=== PATIENT | male | born 1995 | race Caucasian/White ===

== ENCOUNTER 2018-02-12 15:09 | Emergency (ER) | payer SELFPAY ==
[2018-02-12] MEDS ORDERED: Aspirin 81 mg CHEW TAB* 81 MG TAB.CHEW PO ONE (15:59)
[2018-02-12 16:28] LABS: Hematocrit 45 % (42-52); Hemoglobin 15.6 g/dl (14.0-18.0); Mean Corpuscular HGB Conc 34 g/dl (31-36); Mean Corpuscular Hemoglobin 30 pg (27-31); Mean Corpuscular Volume 87 fL (80-94); Platelet Count 179 10^3/ul (150-450); Red Blood Count 5.19 10^6/ul (4.00-5.40); Red Cell Distribution Width 13 % (10.5-15); White Blood Count 5.9 10^3/ul (3.5-10.8)
--- NOTE | 2018-02-12 16:33 | RAD ---
INDICATION: Palpitations COMPARISON: None TECHNIQUE: PA and lateral dual-energy views were obtained. FINDINGS: Bones/Soft Tissues: There are no acute bony findings. Cardiomediastinal: The cardiomediastinal silhouette is normal. Lungs: There are no infiltrates. Pleura: There are no pleural effusions. Other: None IMPRESSION: NEGATIVE EXAMINATION.
[2018-02-12 16:42] LABS: INR 0.97 (0.77-1.02)
[2018-02-12 17:19] LABS: EGFR Non-African American 103.2 (>60)
[2018-02-12 17:38] LABS: ABS Basophils 0.1 10^3/ul (0-0.2); ABS Eosinophils 0.2 10^3/ul (0-0.6); ABS Lymphocytes 2.4 10^3/ul (1.0-4.8); ABS Monocytes 0.5 10^3/ul (0-0.8); ABS Neutrophils 2.7 10^3/ul (1.5-7.7); ABS Nucleated RBC 0 10^3/ul; Eosinophil % 3.1 % (0-6); Lymphocyte % 41.2 % (25-47); Nucleated Red Blood Cells % 0.1
[2018-02-12 17:54] LABS: Urine Appearance Clear; Urine Blood Negative (Negative); Urine Color Yellow; Urine Ketones Trace (Negative); Urine Protein Negative (Negative); Urine Specific Gravity 1.025 (1.010-1.030); Urine Urobilinogen Negative (Negative)
--- NOTE | 2018-02-12 18:17 | ED ---
HPI Cardiac - HPI Summary HPI Summary: This is scribe Pepito Weir documenting for attending Opal Burris M.D. Patient is a 22 y/o M w/ c/o dizziness and heart skipping with onset "a couple of hours ago". He was walking around his home when Sx begin. Patient states he used his stethoscope to listen to skipping heart beats. Pt is an EMT and a nurse. He denies SOB, chest pain. Patient does not feel dizzy presently but can feel heart skipping still. On triage, pain is denied and nothing is listed to aggravate/alleviate Sx. 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 He states since 12, when he squeezed chest he would have SVT; he states this was captured by EKG on 06/07/2016. Patient is from [facility] and saw a car unloader helper three years ago there. 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 He also reports a "weird hanging abnormality" noted on an "unofficial ECHO". Pt was recommended to consider ablation, but he did not want to pursue it at the time. No further workup was done. He had his sertraline increased from 150 to 200 mg a month ago and wonders if the increased palpitations are due to the increased sertraline. He reports previous episodes of Sx but never stayed overnight in hospital for Sx. PSHx of tonsillectomy is noted. He is a coffee drinker and has Hx of anxiety and depression. Patient takes ibuprofen and flonase as needed. NKDA. No heart disease, HTN, diabetes, cancer in mother or father. One grandfather has diabetes , both had HTN and strokes. He denies smoking and substance use. He reports rare alcohol use but also notes that drinking triggers SVT. Patient wants full workup in hospital. I, Dr. Burris, personally performed the services described in this documentation as scribed in my presence and it is both accurate and complete. - History of Current Complaint Chief Complaint: EDDysrhythmPalp Stated Complaint: HIGH HEART RATE Time Seen by Provider: 02/12/18 15:39 Hx Obtained From: Patient Onset/Duration: Started Hours Ago - onset today, Still Present - heart skipping , Resolved - dizziness Timing: Lasting Hours Initial Severity: Moderate Current Severity: None - pain is denied Pain Intensity: 0 Pain Scale Used: 0-10 Numeric - 0/10 Character: Irregular, Skipped Beats Aggravating Factor(s): Nothing Alleviating Factor(s): Nothing Associated Signs and Symptoms: Positive: Dizziness, Palpitations, Other: - heart skipping - Allergy/Home Medications Allergies/Adverse Reactions: Allergies Allergy/AdvReac Type Severity Reaction Status Date / Time No Known Allergies Allergy Verified 02/12/18 15:16 Home Medications: Home Medications Sertraline* [Zoloft*] 100 mg PO BID 02/12/18 [History Confirmed 02/12/18] PMH/Surg Hx/FS Hx/Imm Hx Previously Healthy: No Cardiovascular History: Reports: Hx Supraventricular Ventricular Tachycardia, Other Cardiovascular Problems/Disorders - PFO at , closed Psychiatric History: Reports: Hx Anxiety, Hx Depression - Surgical History Surgery Procedure, Year, and Place: tonsillectomy Infectious Disease History: No Infectious Disease History: Reports: Traveled Outside the [place] in Last 30 Days - Family History Known Family History: Positive: Hypertension - both grandfathers had HTN, Diabetes - one grandfather had diabetes, Other - both grandfathers had strokes - Social History Occupation: Employed Full-time - travel nurse Lives: With Family Alcohol Use: Rare Substance Use Type: Reports: None Smoking Status (MU): Former Smoker Review of Systems Constitutional: Negative Positive: Palpitations, Other - heart skipping Respiratory: Negative Gastrointestinal: Negative Skin: Negative Neurological: Other - dizziness Psychological: Normal All Other Systems Reviewed And Are Negative: Yes Physical Exam - Summary Physical Exam Summary: Appearance: Well-appearing, no pain distress, well-nourished Skin: Warm, color reflects adequate perfusion, dry Head: Normal Head/Face inspection, atraumatic Eyes: Conjunctiva clear ENT: Normal inspection Neck: Supple, no nodes, no JVD Respiratory: Lungs clear, normal breath sounds, no respiratory distress Cardio: RRR, No murmur, pulses normal, brisk capillary refill, occasional single irregular beats noted on monitor as PVC's Abdomen: Soft, nontender Bowel sounds: Present Musculoskeletal: Strength Intact/ROM intact, no calf tenderness, no edema. Psychological: Normal Neuro: Alert, muscle tone normal, no focal deficit Triage Information Reviewed: Yes Vital Signs On Initial Exam: Initial Vitals Temp Pulse Resp BP Pulse Ox 99.1 F 83 18 133/73 99 02/12/18 15:12 02/12/18 15:12 02/12/18 15:12 02/12/18 15:12 02/12/18 15:12 Vital Signs Reviewed: Yes Diagnostics - Vital Signs Vital Signs Temp Pulse Resp BP Pulse Ox 02/12/18 15:12 99.1 F 83 18 133/73 99 - Laboratory Lab Results: Lab Results 02/12/18 02/12/18 02/12/18 Range/Units 16:11 16:11 16:11 WBC 5.9 (3.5-10.8) 10^3/ul RBC 5.19 (4.00-5.40) 10^6/ul Hgb 15.6 (14.0-18.0) g/dl Hct 45 (42-52) % MCV 87 (80-94) fL MCH 30 (27-31) pg MCHC 34 (31-36) g/dl RDW 13 (10.5-15) % Plt Count 179 (150-450) 10^3/ul MPV 12.0 H (7.4-10.4) um3 Neut % (Auto) 45.8 (38-83) % Lymph % (Auto) 41.2 (25-47) % Door % (Auto) 8.5 H (0-7) % Eos % (Auto) 3.1 (0-6) % Baso % (Auto) 1.4 (0-2) % Absolute Neuts (auto) 2.7 (1.5-7.7) 10^3/ul Absolute Lymphs (auto) 2.4 (1.0-4.8) 10^3/ul Absolute Monos (auto) 0.5 (0-0.8) 10^3/ul Absolute Eos (auto) 0.2 (0-0.6) 10^3/ul Absolute Basos (auto) 0.1 (0-0.2) 10^3/ul Absolute Nucleated RBC 0 10^3/ul Nucleated RBC % 0.1 INR (Anticoag Therapy) 0.97 (0.77-1.02) APTT 32.0 (26.0-36.3) seconds D-Dimer, Quantitative < 200 (Less Than 230) ng/mL Sodium 140 (135-145) mmol/L Potassium 3.9 (3.5-5.0) mmol/L Chloride 104 (101-111) mmol/L Carbon Dioxide 28 (22-32) mmol/L Anion Gap 8 (2-11) mmol/L BUN 12 (6-24) mg/dL Creatinine 0.91 (0.67-1.17) mg/dL Est GFR ( Amer) 124.9 (>60) Est GFR (Non-Af Amer) 103.2 (>60) BUN/Creatinine Ratio 13.2 (8-20) Glucose 93 (70-100) mg/dL Lactic Acid (0.5-2.0) mmol/L Calcium 9.8 (8.6-10.3) mg/dL Magnesium 1.9 (1.9-2.7) mg/dL Total Bilirubin 0.60 (0.2-1.0) mg/dL AST 15 (13-39) U/L ALT 12 (7-52) U/L Alkaline Phosphatase 61 (34-104) U/L Total Creatine Kinase 84 (10-223) U/L CK-MB (CK-2) 1.1 (0.6-6.3) ng/mL Troponin I 0.00 (<0.04) ng/mL Total Protein 7.3 (6.4-8.9) g/dL Albumin 4.8 (3.2-5.2) g/dL Globulin 2.5 (2-4) g/dL Albumin/Globulin Ratio 1.9 (1-3) TSH 2.08 (0.34-5.60) mcIU/mL Free T4 0.90 (0.61-1.12) ng/dL Urine Color Urine Appearance Urine pH (5-9) Ur Specific [place] (1.010-1.030) Urine Protein (Negative) Urine Ketones (Negative) Urine Blood (Negative) Urine Nitrate (Negative) Urine Bilirubin (Negative) Urine Urobilinogen (Negative) Ur Leukocyte Esterase (Negative) Urine Glucose (Negative) 02/12/18 02/12/18 Range/Units 16:11 17:32 WBC (3.5-10.8) 10^3/ul RBC (4.00-5.40) 10^6/ul Hgb (14.0-18.0) g/dl Hct (42-52) % MCV (80-94) fL MCH (27-31) pg MCHC (31-36) g/dl RDW (10.5-15) % Plt Count (150-450) 10^3/ul MPV (7.4-10.4) um3 Neut % (Auto) (38-83) % Lymph % (Auto) (25-47) % Door % (Auto) (0-7) % Eos % (Auto) (0-6) % Baso % (Auto) (0-2) % Absolute Neuts (auto) (1.5-7.7) 10^3/ul Absolute Lymphs (auto) (1.0-4.8) 10^3/ul Absolute Monos (auto) (0-0.8) 10^3/ul Absolute Eos (auto) (0-0.6) 10^3/ul Absolute Basos (auto) (0-0.2) 10^3/ul Absolute Nucleated RBC 10^3/ul Nucleated RBC % INR (Anticoag Therapy) (0.77-1.02) APTT (26.0-36.3) seconds D-Dimer, Quantitative (Less Than 230) ng/mL Sodium (135-145) mmol/L Potassium (3.5-5.0) mmol/L Chloride (101-111) mmol/L Carbon Dioxide (22-32) mmol/L Anion Gap (2-11) mmol/L BUN (6-24) mg/dL Creatinine (0.67-1.17) mg/dL Est GFR ( Amer) (>60) Est GFR (Non-Af Amer) (>60) BUN/Creatinine Ratio (8-20) Glucose (70-100) mg/dL Lactic Acid 1.0 (0.5-2.0) mmol/L Calcium (8.6-10.3) mg/dL Magnesium (1.9-2.7) mg/dL Total Bilirubin (0.2-1.0) mg/dL AST (13-39) U/L ALT (7-52) U/L Alkaline Phosphatase (34-104) U/L Total Creatine Kinase (10-223) U/L CK-MB (CK-2) (0.6-6.3) ng/mL Troponin I (<0.04) ng/mL Total Protein (6.4-8.9) g/dL Albumin (3.2-5.2) g/dL Globulin (2-4) g/dL Albumin/Globulin Ratio (1-3) TSH (0.34-5.60) mcIU/mL Free T4 (0.61-1.12) ng/dL Urine Color Yellow Urine Appearance Clear Urine pH 6.0 (5-9) Ur Specific [place] 1.025 (1.010-1.030) Urine Protein Negative (Negative) Urine Ketones Trace A (Negative) Urine Blood Negative (Negative) Urine Nitrate Negative (Negative) Urine Bilirubin Negative (Negative) Urine Urobilinogen Negative (Negative) Ur Leukocyte Esterase Negative (Negative) Urine Glucose Negative (Negative) Result Diagrams: 02/12/18 16:11 02/12/18 16:11 Lab Statement: Any lab studies that have been ordered have been reviewed, and results considered in the medical decision making process. - Radiology CXR Xray Interpretation: No Acute Changes Radiology Interpretation Completed By: Radiologist - Negative examination. This report was reviewed by ED physician. - EKG 1541 Cardiac Rate: Other Rate - sinus arrythmia at [address] Segment: Non-Specific Ectopy: PVCs EKG Interpretation: nl AVIVCT, nl QTC, nl axis, no acute changes EKG Comparison: Other - no prior to compare Re-Evaluation - Re-Evaluation First Eval Re-Evaluation Time: 19:10 Change: Improved Comment: Pt had a run of 30 secs of palpitations, not caught on monitor, but pt still has no CP, no SOB. Pt is comfortable with DC home, with cardiology referral for further eval of irregular beats, and SVT. Disposition - Course Course Of Treatment: 22 yo M with hx PFO at , hx SVT with no ablation or treatment, presents today with palpitations, noted as single unifocal PVC's on the monitor. Labs are unremarkable. Pt never had bigeminy or trigeminy or Vtach on the monitor. Pt has no chest pain. Pt is comfortable with further cardiology work up as an outpt. - Differential Dx - Cardiopulmonary Differential Diagnoses - Cardiopulmonary: Atrial Fibrillation, Atrial Flutter, CAD, Cardiomyopathy, Hyperkalemia, Mitral Valve Prolapse, Myocardial Infarction , Paroxysmal SVT, Paroxysmal VT, Pericarditis - Diagnoses Provider Diagnoses: Palpitations, Frequent PVCs, Hx of supraventricular tachycardia Discharge - Sign-Out/Discharge Documenting (check all that apply): Patient Departure - home - Discharge Plan Condition: Stable Disposition: HOME Patient Education Materials: Premature Ventricular Contractions (ED) Referrals: [facility] [Outside] - 2 Days [facility] REFERRAL [Outside] - As Soon As Possible Brad Rodriguez MD [Medical Doctor] - As Soon As Possible Additional Instructions: We did not detect any serious cause for your PVC's today. You may want to consider decreasing your caffeine intake. We have referred you to Dr. Rodriguez, cardiology, for full cardiac evaluation of your PVC's and your prior history of SVT. Your QTc interval was not greater than 500, so we do not think that the increased dose of sertraline is causing the PVC's and you did not have any Vtach or Torsades while on our monitor, so you may continue your sertraline, but you should discuss this again with Dr. Rodriguez. You should also get established with a primary care provider. You may go to the [facility] care [facility] clinic if you cannot get established in a timely way. Return to the ER if you have any new or worsening symptoms. - Billing Disposition and Condition Condition: STABLE Disposition: Home
[2018-02-12 20:25] VITALS: BP 119/74
== END 2018-02-12 20:25 | disposition home or self-care (01) ==
LOC: ED 15:09
DX: R00.2 Palpitations (principal); I49.3 Ventricular premature depolarization; Q21.1 Atrial septal defect; F41.9 Anxiety disorder, unspecified; F32.9 Major depressive disorder, single episode, unspecified; Z86.79 Personal history of other diseases of the circulatory system; Z87.891 Personal history of nicotine dependence; Z79.899 Other long term (current) drug therapy; Z83.3 Family history of diabetes mellitus; Z82.49 Family history of ischemic heart disease and other diseases of the circulatory system; Z82.3 Family history of stroke
CPT/HCPCS: 36415; 71046; 80053; 81003; 82550; 82553; 83605; 83735; 84439; 84443; 84484; 85025; 85379; 85610; 85730; 93005; 99283; A9270-GY

== ENCOUNTER 2018-08-14 21:29 | Observation (INO) | payer OTHER ==
[2018-08-14] MEDS ORDERED: Adenosine* 3 MG/ML VIAL ONE ×2 (21:42→21:49)
--- NOTE | 2018-08-14 21:54 | ED ---
HPI Cardiac - HPI Summary HPI Summary: Patient is a 23 y/o M presenting to ED with complaints of palpitations, elevated HR since 1729 today. PMHx of SVT, he reports that he gets around six episodes a year, SVT had first onset ten years ago. He notes that he typically can use vasovagal maneuvers to provide relief in Sx, but has been unsuccessful in breaking out of SVT for this episode. Patient states that he has not had an ablation, had a inspector conveyor line workup for SVT five years ago, reports no other workup since. He is on sertraline, 200 mg, notes that he was on 150 last year. He notes no change in SVT episode frequency or character with change of sertraline dosage. On triage, associated severity is rated 2/10, nothing is noted to aggravate/alleviate Sx. Home medications and allergies are reviewed. Pulse 207, o2 99. Patient refuses blood work, stating he just wants to get adenso - History of Current Complaint Chief Complaint: EDDysrhythmPalp Stated Complaint: CARDIAC ISSUE Time Seen by Provider: 08/14/18 21:40 Hx Obtained From: Patient Onset/Duration: Started Hours Ago - 1730 today onset, Still Present Timing: Constant, Lasting Hours - 1730 today onset Current Severity: Mild - 2/10 in severity Pain Intensity: 2 Pain Scale Used: 0-10 Numeric - 2/10 in severity Character: Fast, Other: - palpitations Aggravating Factor(s): Nothing Alleviating Factor(s): Nothing Associated Signs and Symptoms: Positive: Palpitations - Allergy/Home Medications Allergies/Adverse Reactions: Allergies Allergy/AdvReac Type Severity Reaction Status Date / Time No Known Allergies Allergy Verified 08/14/18 21:37 Home Medications: Home Medications Melatonin [Meladox] 3 mg PO QPM 08/15/18 [History Confirmed 08/15/18] diPHENhydraMINE PO* [Benadryl PO 25 MG TAB*] 25 mg PO BEDTIME PRN 08/15/18 [ History Confirmed 08/15/18] PMH/Surg Hx/FS Hx/Imm Hx Cardiovascular History: Reports: Hx Supraventricular Ventricular Tachycardia, Other Cardiovascular Problems/Disorders - PFO at , closed Psychiatric History: Reports: Hx Anxiety, Hx Depression - Surgical History Surgery Procedure, Year, and Place: tonsillectomy - Immunization History Date of Tetanus Vaccine: unk Date of Influenza Vaccine: none Infectious Disease History: No Infectious Disease History: Denies: Traveled Outside the [place] in Last 30 Days - Family History Known Family History: Positive: Hypertension - both grandfathers had HTN, Diabetes - one grandfather had diabetes, Other - both grandfathers had strokes - Social History Alcohol Use: Occasionally Substance Use Type: Reports: None Smoking Status (MU): Never Smoked Tobacco Review of Systems Negative: Fever Positive: Palpitations All Other Systems Reviewed And Are Negative: Yes Physical Exam - Summary Physical Exam Summary: VITAL SIGNS: Reviewed. GENERAL: Patient is a well-developed and nourished male who is lying comfortable in the stretcher. Patient is not in any acute respiratory distress. HEAD AND FACE: No signs of trauma. No ecchymosis, hematomas or skull depressions. No sinus tenderness. EYES: PERRLA, EOMI x 2, No injected conjunctiva, no nystagmus. EARS: Hearing grossly intact. Ear canals and tympanic membranes are within normal limits. MOUTH: Oropharynx within normal limits. NECK: Supple, trachea is midline, no adenopathy, no JVD, no carotid bruit, no c- spine tenderness, neck with full ROM. CHEST: Symmetric, no tenderness at palpation LUNGS: Clear to auscultation bilaterally. No wheezing or crackles. CVS: tachycardic, S1 and S2 present, no murmurs or gallops appreciated. ABDOMEN: Soft, non-tender. No signs of distention. No rebound no guarding, and no masses palpated. Bowel sounds are normal. EXTREMITIES: FROM in all major joints, no edema, no cyanosis or clubbing. NEURO: Alert and oriented x 3. No acute neurological deficits. Speech is normal and follows commands. SKIN: Dry and warm Triage Information Reviewed: Yes Vital Signs On Initial Exam: Initial Vitals Temp Pulse Resp BP Pulse Ox 98.2 F 206 18 138/86 98 08/14/18 21:33 08/14/18 21:33 08/14/18 21:33 08/14/18 21:33 08/14/18 21:33 Vital Signs Reviewed: Yes Procedures - Procedure Summary Procedure Summary: Consented cardioversion was done under moderate sedation. Patient was shocked using synchronized 100 J cardioversion. Patient converted on first attempt, no complications. - Additional Procedures Additional Procedures: cardioversion/defib Diagnostics - Vital Signs Vital Signs Temp Pulse Resp BP Pulse Ox 08/14/18 21:33 98.2 F 206 18 138/86 98 - Laboratory Result Diagrams: 08/14/18 22:07 08/14/18 22:07 Lab Statement: Any lab studies that have been ordered have been reviewed, and results considered in the medical decision making process. - EKG 2140 Cardiac Rate: Other Rate - SVT with rate of 208 BPM EKG Rhythm: SVT Summary of EKG Findings: EKG showed SVT with rate of 208 BPM. 2250 Cardiac Rate: Tachycardia - rate of 100 BPM EKG Rhythm: Sinus Tachycardia Summary of EKG Findings: EKG showed sinus tachycardia with rate of 100 BPM, ST depression from v1 to v3 with prominent R waves. 2306 Cardiac Rate: Tachycardia - rate of 106 BPM EKG Rhythm: Sinus Tachycardia Summary of EKG Findings: This third EKG was done with posterior lead placement. EKG showed sinus 106, ST depression with tall R waves in v1 to v3, Q waves in v7 to v9, minimal ST elevation from v7 to v9. Re-Evaluation - Re-Evaluation First Eval Re-Evaluation Time: 21:44 Change: Unchanged Comment: Adenosine, 6 mg, administered, no relief in Sx Second Eval Re-Evaluation Time: 21:48 Change: Unchanged Comment: Additional 12 mg adenosine had no effect, more adenosine to be given. Third Eval Re-Evaluation Time: 22:12 Change: Unchanged Comment: Additional 12 mg adensoine and 20 mg Cardizem has not been successful in providing resolution of Sx, cardioversion to be done. Written consent was obtained from the patient. Fourth Eval Re-Evaluation Time: 22:16 Change: Improved Comment: Versed and Fentanyl were given, patient was shocked a minute later at 1017. Patient converted and reports feeling better. Second EKG to be done. Fifth Eval Re-Evaluation Time: 23:27 Comment: Consults and EKGs were discussed with patient, he will be admitted to hospital. He is agreeable with this. Disposition - Course Course Of Treatment: Patient is a 23 y/o M presenting to ED with complaints of palpitations, elevated HR since 1730 today. PMHx of SVT, he reports that he gets around six episodes a year, SVT had first onset ten years ago. He notes that he typically can use vasovagal maneuvers to provide relief in Sx, but has been unsuccessful in breaking out of SVT for this episode. Patient states that he has not had an ablation, had a inspector conveyor line workup for SVT five years ago, reports no other workup since. He is on sertraline, 200 mg, notes that he was on 150 last year. He notes no change in SVT episode frequency or character with change of sertraline dosage. On physical exam, patient is noted to be tachycardic. During ED course, patient received fluids. EKG showed SVT with rate of 208 BPM. Patient had initially refused blood work but later became agreeable. Labs showed TSH 5.65, trop 0.01, glucose 140, Creatinine 1.18, MPV 11.7. Tox screen was positive for benzodiazepines. Patient was given adenosine 6 mg, then adenosine 12 mg, then adenosine 12 more mg, then cardizem 20 mg with no relief in Sx. Written consent for cardioversion was obtained. Patient understands and agrees to procedure. He was given Versed 5 mg IV ONCE and fentanyl 100 mcg IV SLOW PU ONCE for moderate procedure sedation. Patient was shocked using synchronized 100 J cardioversion. Patient converted on first attempt, no complications. EKG post cardioversion showed sinus tachycardia with rate of 100 BPM, ST depression from v1 to v3 with prominent R waves. EKG shows reading for posterior acute IN. Patient states that he feels better after cardioversion, notes that he is not experiencing any chest pain nor was he experiencing chest pain at any point. First trop was negative. Patient's case was discussed with Dr. Newton, Dr. Newton will look over EKGs and recommends a third EKG be done. Third EKG was done with posterior lead placement. EKG showed sinus 106, ST depression with tall R waves in v1 to v3, Q waves in v7 to v9, minimal ST elevation from v7 to v9. 2322 - Dr. Newton called back, third EKG was discussed. He states that he does not believe patient is having an IN but believes he may have WPW. He recommends admission of patient to hospitalist. 2331 - Patient's case was discussed with Dr. Min, Dr. Min accepts for admission. - Diagnoses Provider Diagnoses: SVT (supraventricular tachycardia), WPW (Ukeap-Xogiveseo-Tfdum syndrome) - Physician Notifications Discussed Care Of Patient With: Whitney Newton Time Discussed With Above Provider: 23:04 Instructed by Provider To: Other - 2304 - Patient's case was discussed with Dr. Newton, Dr. Newton will look over EKGs and recommends a third EKG be done. 2322 - Dr. Newton called back, third EKG was discussed. He states that he does not believe patient is having an IN but believes he may have WPW. He recommends admission of patient to hospitalist. 2331 - Patient's case was discussed with Dr. Min, Dr. Min accepts for admission. - Critical Care Time Critical Care Time: 30-74 min Discharge - Sign-Out/Discharge Documenting (check all that apply): Patient Departure - ADMIT Patient Received Moderate/Deep Sedation with Procedure: Yes - Discharge Plan Condition: Good Disposition: ADMITTED TO [facility] - Billing Disposition and Condition Condition: GOOD Disposition: Admitted to [facility] - Attestation Statements Document Initiated by Scribe: Yes Documenting Scribe: ANALI MAGALLANES Provider For Whom Emelyne is Documenting (Include Credential): ORACIO MOON MD Scribe Attestation: IANALI , scribed for ORACIO MOON MD on 08/15/18 at 0528. Scribe Documentation Reviewed: Yes Provider Attestation: The documentation as recorded by the ANALI [place] accurately reflects the service I personally performed and the decisions made by me, ORACIO MOON MD Status of Scribe Document: Viewed Procedure Note: Sedation - Sedation/Analgesia Procedure: cardioversion Informed Consent Obtained: Yes Equipment in Room: Pulse Oximeter, Head Refrigerating Engineer Plan for Sedation: Moderate Sedation Previous Problem with Sedation: No - Pre-Procedure Exam Airway Exam:: Neck Extenstion: Full, Teeth: Normal - Post Procedure Eval Alert and Oriented: yes Normal Respiratroy Status: yes Controlled Nausea/Vomiting/Pain: no nausea, vomiting, or pain Able to Ambulate/Baseline Mobility: yes Discharge Instructions Given: yes Complications: none Reversal Agent Used: no Face to Face Atendance Began at: 22:16 Face to Face Attandanced Ended at: 22:31
[2018-08-14] MEDS ORDERED: Diltiazem IV* 5 MG/ML 5 ML VIAL (for loading dose/IV Push) (25 MG) ONE (21:55)
[2018-08-14] MEDS ORDERED: Diltiazem IV* 5 MG/ML 5 ML VIAL (for loading dose/IV Push) (25 MG) IV SLOW PU ONE (21:56)
[2018-08-14] MEDS ORDERED: NS 0.9% 1000 ML** 1,000 ML IV ONE (21:56)
[2018-08-14 22:14] LABS: ABS Basophils 0.1 10^3/ul (0-0.2); ABS Eosinophils 0.2 10^3/ul (0-0.6); ABS Lymphocytes 3.2 10^3/ul (1.0-4.8); ABS Monocytes 0.5 10^3/ul (0-0.8); ABS Nucleated RBC 0 10^3/ul; Eosinophil % 2.1 %; Hematocrit 46 % (42-52); Hemoglobin 15.5 g/dl (14.0-18.0); Mean Corpuscular HGB Conc 34 g/dl (31-36); Mean Corpuscular Hemoglobin 30 pg (27-31); Mean Corpuscular Volume 88 fL (80-94); Mean Platelet Volume 11.7 fL (7.4-10.4); Nucleated Red Blood Cells % 0; Platelet Count 200 10^3/ul (150-450); Red Blood Count 5.24 10^6/ul (4.00-5.40); Red Cell Distribution Width 12 % (10.5-15); White Blood Count 10.1 10^3/ul (3.5-10.8)
[2018-08-14] MEDS ORDERED: Midazolam concentrated* 5 MG/ML 1 ml VIAL ONE (22:14)
[2018-08-14] MEDS ORDERED: fentaNYL* 50 MCG/ML 2 ML VIAL (100 MCG VIAL) ONE (22:14)
[2018-08-14 22:22] LABS: Activated Partial Thrombo Time 31.5 seconds (26.0-36.3); INR 0.92 (0.77-1.02)
[2018-08-14] MEDS ORDERED: Midazolam* 1 MG/ML 5 ML VIAL (5 MG) IV ONE (22:27)
[2018-08-14] MEDS ORDERED: fentaNYL* 50 MCG/ML 2 ML VIAL (100 MCG VIAL) IV SLOW PU ONE (22:27)
[2018-08-14] MEDS ORDERED: Adenosine* 3 MG/ML VIAL IV PUSH ONE ×3 (22:28→22:29)
[2018-08-14 22:30] LABS: Albumin 4.5 g/dL (3.2-5.2); Albumin/Globulin Ratio 1.8 (1-3); BUN/Creatinine Ratio 13.6 (8-20); Calcium 9.7 mg/dL (8.6-10.3); EGFR African American 91.8 (>60); EGFR Non-African American 75.8 (>60); Globulin 2.5 g/dL (2-4); Magnesium 1.9 mg/dL (1.9-2.7); Potassium 3.9 mmol/L (3.5-5.0); Total Bilirubin 0.4 mg/dL (0.2-1.0)
[2018-08-14 22:32] LABS: Troponin I 0.01 ng/mL (<0.04)
[2018-08-14 22:49] LABS: TSH (Thyroid Stimulating Horm) 5.65 mcIU/mL (0.34-5.60)
[2018-08-14 23:33] LABS: Barbiturates Urine Screen None Detected (None Detect); Benzodiazepine Urine Screen Presumptive Positive (None Detect); Urine Cannabinoids Screen None Detected (None Detect)
[2018-08-14] MEDS ORDERED: NS 0.9% 1000 ML** 1,000 ML IV SCH (23:45)
[2018-08-14] MEDS ORDERED: Magnesium Sulfate 2 GM IV* 2 GM/50 ML BAG IVPB ONE (23:59)
[2018-08-15] MEDS ORDERED: Potassium Chlor TAB* 20 MEQ TAB.ER PO ONE
[2018-08-15] MEDS ORDERED: diPHENhydraMINE PO* 25 MG PO PRN (00:14)
[2018-08-15] MEDS ORDERED: Ondansetron INJ* 2 MG/ML VIAL IV PRN (01:44)
[2018-08-15] MEDS ORDERED: Acetaminophen TAB* 325 MG PO PRN (01:44)
--- NOTE | 2018-08-15 01:50 | HP ---
CC: Shanna Carreon NP HISTORY AND PHYSICAL: DATE OF ADMISSION: 08/14/18 PRIMARY CARE PROVIDER: Shanna Carreon NP. CHIEF COMPLAINT: Palpitations. HISTORY OF PRESENT ILLNESS: This is a 23-year-old male with past medical history of anxiety/depression, who now presents to the emergency room because of palpitations. The patient reports that he has had several episodes of palpitations over the course of the past several years, most recent episode was 4 months ago, at that time he started to have palpitations. He felt as if his heart was racing and he was feeling lightheaded and dizzy, lasted for an hour. He ended up going to see the emergency room at that time in [facility] and was found to have SVT. The patient was cardioverted. Subsequently, the patient was sent home. Also over a year ago he had similar episode when his heart rate was in the 200s. The patient states that usually his episodes are triggered by some sort of stress as well as alcohol intake; however, he does not drink alcohol that often. He only drinks 1 to 2 beers every few months. 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 Today, he reports that he started to have palpitations, he was doing his daily activities, he was actually at rest at that time and noted that his heart was racing. His heart was racing for several hours before he started to go to the emergency room. He tried vasovagal maneuvers; however, this did not help. In the emergency room, the patient was noted to have heart rate in the 200s, the vasovagal maneuver did not help. The patient was given adenosine 6 mg, this not work, followed by 12 mg as well as 12 mg. The patient was then subsequently decided for cardioversion. Versed and fentanyl were given. The patient was subsequently successfully cardioverted into sinus rhythm. Subsequent EKGs were done, show sinus rhythm. In the emergency room, Dr. Jurado contacted Dr. Newton, straight edger, who reviewed the EKGs and suggested that the patient is likely having reentry tachycardia, possibly Aileen-Parkinson- White and recommended observation in the hospital. Currently, the patient does not have any chest pain. It should be noted that throughout the entire episode, the patient did not have any chest pain or lightheadedness. PAST MEDICAL HISTORY: Anxiety/depression. PAST SURGICAL HISTORY: Earp tooth removal. MEDICATIONS: Include: 1. Diphenhydramine 25 mg at bedtime as needed. 2. Zoloft 100 mg twice a day. 3. Melatonin 3 mg at bedtime. ALLERGIES: No known drug allergies. FAMILY HISTORY: Father: Anxiety and depression. The patient does not think anybody in his family has any heart issues. No episodes of sudden cardiac in family. His significant other is at bedside who suggests that possibly his uncle had an enlarged heart. SOCIAL HISTORY: The patient is a nurse, trying to apply for medical school. He lives at home. Does not smoke, occasional alcohol use. The patient does drink coffee 1 to 2 cups a day. REVIEW OF SYSTEMS: No fevers, no chills, no sore throat, no change in his vision or hearing. No chest pain, the patient was noted to have palpitations, no lightheadedness, no presyncopal or syncopal episode. No shortness of breath , no cough, no sputum production, no abdominal pain, no nausea, no vomiting, no diarrhea, no new rashes or lesions, no headaches, no neurological weakness or other symptoms. Full review of systems was done. PHYSICAL EXAMINATION GENERAL: This is a young male, well developed, well nourished, lying in an ER stretcher, appears slightly anxious. VITAL SIGNS: Blood pressure is 145/88, heart rate of 98, respiratory rate of 14 , saturation of 100% on room air. HEENT: Pupils are equal, round, reactive to light. Atraumatic, normocephalic. Oral mucosa is dry. No nystagmus. LUNGS: Clear to auscultation bilaterally with no wheezing, rales, or rhonchi. HEART: There is no chest wall tenderness, regular, tachycardia, no murmurs. ABDOMEN: Bowel sounds are normoactive in all 4 quadrants. Abdomen is soft, nontender, nondistended. EXTREMITIES: There are no rashes or lesions. There is no lower extremity edema , no calf tenderness. NEUROLOGICAL: Alert, oriented x3, no focal neurological deficits. DIAGNOSTIC STUDIES/LABORATORY DATA: Sodium of 138, potassium of 3.9, chloride of 103, carbon dioxide of 28, BUN of 16, creatinine of 1.18, glucose of 140. Urine drug screen is positive for benzodiazepine; however, it should be noted that the U- Tox was obtained after the patient had received Versed. The patient had several EKGs done here, most initial EKG showed supraventricular tachycardia and heart rate of 208. Subsequently EKG #2 was done at 2248 which showed sinus tachycardia and heart rate of [address] depression in the inferior leads. Subsequently another EKG was done at 2306 , which shows sinus tachycardia again. IMPRESSION AND PLAN: 1. Tachycardia: Supraventricular tachycardia versus reentry tachycardia: At this time, the patient will be placed under observation. I will start the patient on IV fluids. I will supplement magnesium and potassium to keep potassium more than 4 as well as magnesium greater than 2. We will monitor the patient on telemetry. I will obtain an echocardiogram. The patient will benefit from a cardiology evaluation. Dr. Newton has been made aware of the patient's situation. 2. History of depression/anxiety: Continue the patient's sertraline. 3. Mildly elevated TSH: will get a repeat TSH and free T4 to further evaluate. 4. We will start the patient on a regular low-caffeine diet. 5. Activity as tolerated for DVT prophylaxis, ambulation. [id number] #: [id number] RISA
[2018-08-15 06:01] LABS: Anion Gap 5 mmol/L (2-11); BUN/Creatinine Ratio 15.4 (8-20); Blood Urea Nitrogen 14 mg/dL (6-24); CO2 Carbon Dioxide 28 mmol/L (22-32); Chloride 105 mmol/L (101-111); EGFR African American 123.9 (>60); EGFR Non-African American 102.4 (>60); Glucose 100 mg/dL (70-100); Sodium 138 mmol/L (135-145)
[2018-08-15 06:16] LABS: Troponin I 0.13 ng/mL (<0.04)
[2018-08-15] MEDS ORDERED: Aspirin TAB* 325 MG PO ONE (06:18)
[2018-08-15 06:35] LABS: TSH (Thyroid Stimulating Horm) 4.96 mcIU/mL (0.34-5.60)
[2018-08-15 06:37] LABS: Free T4 1.01 ng/dL (0.61-1.12)
[2018-08-15] MEDS ORDERED: Sertraline* 100 MG TAB PO SCH (09:00)
--- NOTE | 2018-08-15 11:38 | ECHO ---
Patient: JAMIE ROBERTO [facility] Rec#: [id number] : 1995 Date: 08/15/2018 Age: 23y Height: 170 cm / 66.9 in Weight: 73 kg / 160.9 lbs Sex: M BSA: 1.8 Room#: [facility] Admit Date#: 08/15/2018 Type: Inpatient Referring: Lisa Min Reading: Amparo Torres MD Director Of Athletics: lCaudette Dejesus RN RDCS Transthoracic Echocardiogram Indication: Abnormal EKG, SVT BP: 96/48 HR: 77 Rhythm: NSR Findings History: Palpitations, SVT, anxiety, depression. Technical Comments: The study quality is fair. Left Ventricle: The left ventricular chamber size is normal. Global left ventricular wall motion and contractility are within normal limits. There is normal left ventricular systolic function. The estimated ejection fraction is 55-60%. Normal left ventricular diastolic filling is observed. Left Atrium: The left atrial chamber size is normal. Right Ventricle: The right ventricular chamber size and systolic function are within normal limits. Right Atrium: The right atrial cavity size is normal. A prominent chiari network is noted in the right atrium. Aortic Valve: The aortic valve is trileaflet. Systolic excursion of the aortic valve is normal. There is no evidence of aortic stenosis. Mitral Valve: The mitral valve leaflets are mildly thickened. There is trace to mild mitral regurgitation. There is no evidence of mitral stenosis. Tricuspid Valve: The tricuspid valve leaflets are normal. There is trace tricuspid regurgitation. Unable to estimate the right ventricular systolic pressure. There is no tricuspid stenosis. Pulmonic Valve: The pulmonic valve appears normal. There is a trace pulmonic regurgitation. There is no pulmonic stenosis. Pericardium: There is no significant pericardial effusion. Aorta: There is no dilatation of the ascending aorta. There is no dilatation of the aortic arch. There is no dilation of the aortic root. Pulmonary Artery: The main pulmonary artery appears normal. Venous: The inferior vena cava appears normal in size. There is an approximate 50% respiratory change in the inferior vena cava dimension. Conclusions The left ventricular chamber size is normal. Global left ventricular wall motion and contractility are within normal limits. The estimated ejection fraction is 55-60%. The right ventricular chamber size and systolic function are within normal limits. The aortic valve is trileaflet with normal function. There is trace to mild mitral regurgitation. There is trace tricuspid regurgitation. No prior echo available to compare. Measurements Name Value Normal Range RVIDd (AP) 2D 2.6 cm (0.9 - 2.6) RVDdMajor (2D) 3.2 cm (2.2 - 4.4) RAd ISD 4CH 4.4 cm (3.4 - 4.9) RA (A4C)W 3.8 cm (2.9 - 4.6) IVSd (2D) 1 cm (0.6 - 1) LVPWd (2D) 1 cm (0.6 - 1) LVIDd (2D) 4.2 cm (3.6 - 5.4) LVIDs (2D) 3.1 cm - LV FS (2D) 26 % (25 - 45) Aortic Annulus 1.9 cm (1.4 - 2.6) Ao root diameter (2D) 2.8 cm (2.1 - 3.5) Ascending Ao 2.4 cm (2.1 - 3.4) Aortic arch 2.4 cm (1.8 - 3.4) LA dimension (AP) 2D 3.7 cm (2.3 - 3.8) LAd ISD 4CH 4.7 cm (2.9 - 5.3) LA ISD 4CH W 3.4 cm (2.5 - 4.5) Name Value Normal Range LA ESV BP (A/L) index 25 ml/m2 - Name Value Normal Range MV E-wave Vmax 0.68 m/sec - MV deceleration time 218 msec - MV A-wave Vmax 0.37 m/sec - MV E:A ratio 1.8 ratio - LV septal e' Vmax 0.11 m/sec - LV lateral e' Vmax 0.12 m/sec - LV E:e' septal ratio 6.2 ratio - LV E:e' lateral ratio 5.7 ratio - Name Value Normal Range AV Vmax 1.3 m/sec - AV VTI 23.9 cm - AV peak gradient 7 mmHg - AV mean gradient 4 mmHg - LVOT Vmax 1.3 m/sec - LVOT VTI 23.4 cm - LVOT peak gradient 7 mmHg - LVOT mean gradient 4 mmHg - SANTIAGO Vmax 0.91 m/sec - Name Value Normal Range IVC diameter 1.4 cm - Name Value Normal Range PV Vmax 0.84 m/sec -
[2018-08-15 12:00] LABS: C Reactive Protein < 1.00 mg/L (<8.01)
[2018-08-15 12:25] VITALS: BP 115/66
--- NOTE | 2018-08-15 14:43 | PN ---
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 He estimates about 8 x /year, possible relationship to EtOH and anxiety. He drinks coffee and has never tried to stop it. Yesterday 5 hour episode that did not respond to vagal maneuvers, underwent d/c CV, now in NSR. PMHx PFO, closed in childhood. SVT PVC's Anxiety Acetaminophen (Tylenol Tab*) 650 mg PO Q6H PRN PRN Reason: FEVER/HEADACHE Last Admin: 08/15/18 02:04 Dose: 650 mg Diphenhydramine HCl (Benadryl Po*) 25 mg PO BEDTIME PRN PRN Reason: INSOMNIA Sodium Chloride (Ns 0.9% 1000 Ml) 1,000 mls @ 100 mls/hr IV PER RATE KAMLA Melatonin (Melatonin) 3 mg PO QPM KAMLA; Protocol Ondansetron HCl (Zofran Inj*) 4 mg IV Q6H PRN PRN Reason: NAUSEA Sertraline HCl (Zoloft*) 100 mg PO BID KAMLA Last Admin: 08/15/18 07:47 Dose: 100 mg Vital Signs: Temp Pulse Resp BP Pulse Ox 98.3 F 87 18 115/66 98 08/15/18 12:20 08/15/18 12:20 08/15/18 12:20 08/15/18 12:20 08/15/18 12:20 Lean fit young man in NAD Clear lungs S1S2 regular, no murmurs. No edema. Normal neurological exam. ECG: SVT: narrow complex rhythm, regular, [address]/T changes precordial leads noted. Echo: Normal EF, trace to mild MR, TR. Laboratory Tests 08/14/18 08/14/18 08/14/18 22:07 22:07 22:07 WBC 10.1 RBC 5.24 Hgb 15.5 Hct 46 MCV 88 MCH 30 MCHC 34 RDW 12 Plt Count 200 MPV 11.7 H Neut % (Auto) 59.3 Lymph % (Auto) 32.0 Trego % (Auto) 5.4 Eos % (Auto) 2.1 Baso % (Auto) 1.2 Absolute Neuts (auto) 6.0 Absolute Lymphs (auto) 3.2 Absolute Monos (auto) 0.5 Absolute Eos (auto) 0.2 Absolute Basos (auto) 0.1 Absolute Nucleated RBC 0 Nucleated RBC % 0 ESR INR (Anticoag Therapy) 0.92 APTT 31.5 Sodium 138 Potassium 3.9 Chloride 103 Carbon Dioxide 28 Anion Gap 7 BUN 16 Creatinine 1.18 H Est GFR ( Amer) 91.8 Est GFR (Non-Af Amer) 75.8 BUN/Creatinine Ratio 13.6 Glucose 140 H Calcium 9.7 Magnesium 1.9 Total Bilirubin 0.40 AST 14 ALT 14 Alkaline Phosphatase 58 Troponin I 0.01 C-Reactive Protein Total Protein 7.0 Albumin 4.5 Globulin 2.5 Albumin/Globulin Ratio 1.8 TSH 5.65 H Free T4 Urine Opiates Screen Ur Barbiturates Screen Ur Phencyclidine Scrn Ur Amphetamines Screen U Benzodiazepines Scrn Urine Cocaine Screen U Cannabinoids Screen 08/14/18 08/15/18 08/15/18 23:04 05:29 05:29 WBC RBC Hgb Hct MCV MCH MCHC RDW Plt Count MPV Neut % (Auto) Lymph % (Auto) Trego % (Auto) Eos % (Auto) Baso % (Auto) Absolute Neuts (auto) Absolute Lymphs (auto) Absolute Monos (auto) Absolute Eos (auto) Absolute Basos (auto) Absolute Nucleated RBC Nucleated RBC % ESR 5 INR (Anticoag Therapy) APTT Sodium 138 Potassium 4.0 Chloride 105 Carbon Dioxide 28 Anion Gap 5 BUN 14 Creatinine 0.91 Est GFR ( Amer) 123.9 Est GFR (Non-Af Amer) 102.4 BUN/Creatinine Ratio 15.4 Glucose 100 Calcium 9.0 Magnesium Total Bilirubin AST ALT Alkaline Phosphatase Troponin I 0.13 H* C-Reactive Protein < 1.00 Total Protein Albumin Globulin Albumin/Globulin Ratio TSH 4.96 Free T4 1.01 Urine Opiates Screen None detected Ur Barbiturates Screen None detected Ur Phencyclidine Scrn None detected Ur Amphetamines Screen None detected U Benzodiazepines Scrn Presumptive positive A Urine Cocaine Screen None detected U Cannabinoids Screen None detected 08/15/18 10:09 WBC RBC Hgb Hct MCV MCH MCHC RDW Plt Count MPV Neut % (Auto) Lymph % (Auto) Trego % (Auto) Eos % (Auto) Baso % (Auto) Absolute Neuts (auto) Absolute Lymphs (auto) Absolute Monos (auto) Absolute Eos (auto) Absolute Basos (auto) Absolute Nucleated RBC Nucleated RBC % ESR INR (Anticoag Therapy) APTT Sodium Potassium Chloride Carbon Dioxide Anion Gap BUN Creatinine Est GFR ( Amer) Est GFR (Non-Af Amer) BUN/Creatinine Ratio Glucose Calcium Magnesium Total Bilirubin AST ALT Alkaline Phosphatase Troponin I 0.15 H* C-Reactive Protein Total Protein Albumin Globulin Albumin/Globulin Ratio TSH Free T4 Urine Opiates Screen Ur Barbiturates Screen Ur Phencyclidine Scrn Ur Amphetamines Screen U Benzodiazepines Scrn Urine Cocaine Screen U Cannabinoids Screen A/P 23 yo with long standing SVT, fast, this time did not break on its own. Mild bump in troponins c/w demand ischemia. SVT: I recommended EPS for mapping and ablation. I discussed lifestyle changes. Option for Beta geraldine, might help with PVC's, anxiety, consider in the future if breakthrough prior to EPS. Trops: Demand ischemia, no CAD risks. Repeat ECG next week to ensure normalizes. Not planning on stress test at this point, but can re evaluate if change in symptoms. Full dication to be done.
[2018-08-15] MEDS ORDERED: Melatonin 3 MG TAB PO SCH (18:00)
--- NOTE | 2018-08-15 20:16 | DS ---
CC: Shanna Carreon NP; Dr. Amparo Torres * DISCHARGE SUMMARY: DATE OF ADMISSION: 08/14/18 DATE OF DISCHARGE: 08/15/18 PRIMARY CARE PROVIDER: Shanna Carreon NP CARDIOLOGY: Dr. Amparo Torres. ATTENDING ON THIS ADMISSION: Dr. Preet Estrada.* (DICTATED BY ANDREA GILL NP) HOSPITAL COURSE: Please refer to admission H and P, dated 08/14/18, but in short, this is a 23-year-old gentleman with a history of SVT for the last 15 years. The patient states he is usually able to perform vasovagal maneuvers and break SVT on his own. He does not take beta blockers or other medications for heart rate control. The patient does admit to some dietary indiscretion with alcohol and caffeine. The patient realized yesterday that he was not able to break his SVT on his own. He was in the heart rate of greater than 200 for approximately 5 hours yesterday. He received adenosine in the emergency department, 6 mg, 12 mg, and 12 mg without breaking. He was subsequently put under conscious sedation and cardioverted. A cardioversion was successful. EKGs were discussed and reviewed by Dr. Newton, who suggests that the patient may be having reentry tachycardia versus a [id number] syndrome. He was admitted to observation. He was seen by Dr. Amparo Torres today. He did have elevated troponins x2, which is attributable to demand ischemia in then presence of high rate tachycardia. Dr. Torres evaluated the patient today and does want to repeat an EKG, but after a lengthy discussion with the patient, she is in agreement. The patient is stable for discharge with outpatient followup. DISCHARGE DIAGNOSES: 1. Supraventricular tachycardia. 2. Elevated troponin. DISCHARGE MEDICATIONS: Include: 1. Melatonin 3 mg in the evening. 2. Zoloft 100 mg p.o. b.i.d. 3. Benadryl 25 mg p.o. as needed. REVIEW OF SYSTEMS ON THE DAY OF DISCHARGE: The patient denies any fever, fatigue or chills. No dizziness. No headache. No blurred vision. No chest pain. No shortness of breath. No palpitations. No abdominal pain. No nausea. No vomiting. No urinary complaints. No arthralgias or myalgias and no further constitutional complaints. PHYSICAL EXAM: Reveals a well-appearing gentleman, in no acute distress. Vital signs are blood pressure 115/66, heart rate 87, regular sinus rhythm, O2 saturation 98% on room air, temperature of 98.3 with a respiratory rate of 18. HEENT: The patient is atraumatic, normocephalic. PERRLA with nonicteric sclerae. Oral mucosa is moist. Tongue is midline. No thyromegaly appreciated. No carotid bruits auscultated. Cardiovascular: S1, S2 present. No murmurs, gallops or rubs noted. Rate and rhythm are currently regular. Lungs are clear bilaterally to auscultation with no wheezing, rhonchi or rales. Abdomen is soft, nontender, nondistended. Positive bowel sounds in all 4 quadrants. was deferred. Musculoskeletal: There is no clubbing, no cyanosis , no edema. He has full range of motion. Steady gait. Gross motor and sensation are intact. Neurologic: Grossly intact with no focal deficits. Psychiatric: He is cooperative and appropriate, albeit anxious. DIAGNOSTIC STUDIES/LAB DATA: WBCs 10.1, RBCs 5.24, hemoglobin 15.5, hematocrit 46, platelets 200. Sodium 138, potassium 4.0, chloride 105, CO of 28, BUN 14, creatinine 0.91, GFR 102.4, glucose 100, calcium 9.0, magnesium 1.9. AST 14, ALT 14, alk phos 58. Troponin 0.01 and 0.13 and 0.15. CRP is less than 1. Protein is 7.0, albumin 4.5, globulin 2.5. TSH is 4.96, free T4 is 1.01, total T3 is pending. Toxicology presumptive positive for benzodiazepines. No further illicit drugs noted. INR is 0.92. Transthoracic echocardiogram, dated 08/15/18, shows left ventricular chamber size is normal. Global left ventricular wall motion and contractility are within normal limits. Estimated EF is 55% to 60%. Right ventricular chamber size and systolic function are within normal limits. Aortic valve is trileaflet with normal function. There was [id number] mitral regurgitation. There is trace tricuspid regurgitation and no prior echo is available for comparison. EKGs, most recent EKG shows sinus tachycardia with flattening in leads V3 through V6, mild ST depression in V1 to V3. DISPOSITION: The patient will be discharged to home. FOLLOWUP: The patient was instructed to follow up with Dr. Amparo Torres in the next week for repeat EKG. He also will be referred to [facility] for EPS studies. The patient was also instructed to follow up with his primary care provider on an as needed basis. He also has information for [facility] if he wishes to follow up at the hospital clinic. The patient was given some lifestyle and dietary modifications in the form of no alcohol use and no caffeine. The patient seems unmotivated for dietary changes. However, this is something that can be discussed further as additional testing is completed for him in an outpatient setting. The patient was discharged to home in stable condition. All questions were answered. The patient stated his understanding of his discharge diagnosis and instructions. ANDREA GILL NP [id number]/[facility] #: [id number] RISA
--- NOTE | 2018-08-16 16:46 | CONS ---
CONSULTATION REPORT: DATE OF CONSULT: 08/15/18 DICTATING FOR: Dr. Amparo Torres, Cardiology. REASON FOR CONSULT: SVT. PRIMARY MANUFACTURING SYSTEMS ENGINEER: None. CHIEF COMPLAINT: Palpitations. 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 The patient states that he has been in his usual state of health. He moved to the [facility] in December 2017 for his spouse's education at [employer]. He is originally from [facility], where he was previously evaluated by a child advocate approximately 5 years ago with the [facility] due to complaints of palpitations. He states that at that time the general child advocate had offered him a 30-day event monitor; however, the patient declined evaluation. Since then, he has had episodes of palpitations occurring approximately 6 times a year. Frequency of symptoms have not increased nor has the intensity. He states the episodes can last anywhere from 2 minutes to several hours. Typically, episodes are triggered by alcohol intake and stress, although he reports rarely drinking alcohol due to this. He also adds that he is usually successful with aborting episodes with vagal maneuver, specifically squatting and coughing. He states that on 08/14/18 at 5:30 p.m. he started to develop a sensation of irregularity and palpitations. He did utilize his [employer] I watch and was able to capture tachycardia, heart rate 208. He states that because he was not able to abort episode with vagal maneuver, he opted for evaluation at [facility] emergency department. He admits to actually sitting in the waiting room for 2 hours before registering hoping that the episode would resolve on its own. However, around 9 o'clock, he decided to officially register and be evaluated for episode. He was given adenosine therapy without successful conversion. Subsequently around 10:30 on 08/14/18, he was successfully synchronized and cardioverted with one attempt. He was admitted to [address] [place] [address], where he has been monitored on telemetry with no further episodes and we were asked to see the patient in consultation. He denies chest pain, shortness of breath, dizziness, syncope, diaphoresis, edema, decreased exercise capacity. He states otherwise he has been in his usual state of health. He does admit that he does not wear his Apple watch routinely. He only used it when he was having symptoms on 08/14/18. PAST MEDICAL HISTORY: 1. SVT. 2. Anxiety and depression. 3. 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 4. Born prematurely. 5. Reported use of adenosine in infancy. PAST SURGICAL HISTORY: Includes: 1. Tonsillectomy. 2. Reported PFO closure. 3. LASIK eye surgery. HOME MEDICATIONS: Include: 1. Sertraline 200 mg a day. 2. Melatonin 5 mg p.o. q.h.s. 3. Benadryl as needed. 4. Flonase as needed. Denies herbal supplements. ALLERGIES: No known drug allergies. FAMILY HISTORY: Negative for sudden cardiac or cardiovascular disease in first-degree relatives. SOCIAL HISTORY: The patient is and lives at home with his who is employed as a registered nurse at the [employer]. He denies ever smoking tobacco products or utilizing tobacco products. He consumes on average 1 to 3 cups of caffeine a day. He rarely drinks alcohol. He denies illegal drug use or steroid use. He remains active periodically doing high intensity interval training and lifting. REVIEW OF SYSTEMS: All systems have been reviewed and otherwise negative except what was mentioned in above history of present illness. PHYSICAL EXAM: Temperature 97.1, pulse 88, respirations 16, oxygenation 98% on room air, blood pressure 96/48. General: The patient is eating lunch upon entering room, offers no complaints, appears anxious, but is alert and oriented x3, in no apparent distress. HEENT: Head is atraumatic and normocephalic. Oral mucosa is moist. Tongue is midline. Neck: Supple. Trachea midline. No JVD. No carotid bruits. Cardiac: Normal S1, S2. Regular rate and rhythm. No murmur, rub, or gallop noted. Lungs: Auscultated posteriorly. No evidence of adventitious breath sounds auscultated. /GI: Normal active bowel sounds in all 4 quadrants. No hepatomegaly to palpation. Abdomen is nontender. No evidence of guarding noted. Peripheral Vascular: 3+ dorsalis pedis and brachial pulses palpated bilaterally and symmetrically. Extremities: No edema appreciated. No clubbing appreciated. Skin: Intact. No evidence of jaundice , rash, or ecchymosis appreciated. DIAGNOSTIC STUDIES/LAB DATA: Blood work: White count 10.1, hemoglobin 15.5, hematocrit 46, platelets 200. Sodium 138, potassium 4, chloride 105, carbon dioxide 28, creatinine 0.9, glucose 100. Troponin #1, 0.01; troponin #2, 0.13; troponin #3, 0.15. Repeat TSH was 4.96. INR 0.92. Urine drug tox screen was positive for benzo. Of note, urine study was collected at 11 p.m., 30 minutes after he was given Versed for synchronized cardioversion. Initial EKG on 08/14/18 at 2136 demonstrated supraventricular tachycardia, rate 208, with associated diffuse ST segment depression. Post cardioversion at 2306 on 08/14/18, sinus tachycardia, rate 106, with notable anterior ST segment depression in V1 through V3. Echocardiogram obtained on 08/15/18, LVEF 55% to 60% with normal ventricular systolic function. Left atrial chamber size was normal. Right atrial chamber size was normal with the prominent Chiari network noted in the right atrium. Aortic valve trileaflet, no aortic stenosis. No mitral stenosis. Trace to mild mitral regurgitation. Trace tricuspid regurgitation. Trace pulmonic regurgitation. No transthoracic ascending aorta dilatation. Telemetry reviewed, the patient has been in normal sinus rhythm, rate 80s. ASSESSMENT AND PLAN: 1. History of supraventricular tachycardia: The patient states symptomatology started at age 14/15. He was historically evaluated by General Cardiology approximately 5 years ago, 30-day event monitor was offered; however, the patient declined. He has not had formal cardiology followup since then. Apparently symptoms of palpitations occur 6 times a year, frequency has not increased since onset nor has intensity. Episodes can range from 2 minutes to several hours, typically aborted with vagal maneuver. Episodes are triggered by alcohol and stress. The patient is status post successful synchronized cardioversion on 08/14/18, has not had any reoccurrence on telemetry. Trial of Lopressor was offered; however, ultimately, the patient needs to see Electrophysiology for EPS/? supraventricular tachycardia ablation. We will place order through [facility] for referral. The patient is agreeable to seeing Electrophysiology at this time. He was encouraged to avoid caffeine, alcohol, and stress. 2. Troponinemia: Troponin 0.13. Status post cardioversion, the patient had ST segment depression noted in leads V1 through V3. This is likely rate related change. The patient does do high intensity interval training and weight lifting with no complaints of chest pain; in fact, he has not had chest pain at all throughout this episode. We will arrange for repeat EKG in 1 week' s time with our practice. No focal wall motion abnormalities appreciated on echocardiogram. 3. History of premature ventricular contractions: The patient initially evaluated at the emergency department on 02/12/18 due to palpitations. At that time, he was noted to have ventricular ectopy. However, no ventricular bigeminy or trigeminy per emergency room report. This could be a provokable cause for supraventricular tachycardia. Again, he was also on beta-blockade therapy. 4. Anxiety and depression. The patient is on sertraline which is an SSRI. The patient had a positive urine drug tox screen; however, upon further review, it appears that sample was collected at 11 p.m., 30 minutes after he was given Versed for synchronized cardioversion. He denies illegal drug use at this time. 5. Disposition. Pending course. Dr. Amparo Torres has seen and examined the patient and agrees with the above assessment and plan. Please do not hesitate to contact our service for any future questions or concerns. We will sign off the case. We will place referral to Electrophysiology. FANNIE NO NP [id number]/CPS #: [id number] RISA
== END 2018-08-15 15:00 | disposition home or self-care (01) ==
LOC: ED 21:29 → MEDTELE 23:58
PROVIDERS: ADMIT Internal Medicine; ATTEND Internal Medicine
DX: I47.1 Supraventricular tachycardia (principal); R79.89 Other specified abnormal findings of blood chemistry; F41.9 Anxiety disorder, unspecified; R42 Dizziness and giddiness; R00.2 Palpitations
CPT/HCPCS: 36415; 80048; 80053; 80307; 83735; 84439; 84443; 84479; 84484; 85025; 85610; 85652; 85730; 86140; 92960; 93005; 93306; 96361; 96365; 96376; 99285; A9270-GY; J0153; J2250; J3010; J3475